=== PATIENT | male | born 1970 | race Caucasian/White ===

== ENCOUNTER 2016-07-03 17:11 | Emergency (ER) | payer BC ==
[~2016-07-03] VITALS: Ht 188 cm; Wt 79.9 kg
[~2016-07-03 17:11] MED LIST: ASPI81TA82 PO; CIPR500T4 PO; FLAG500T PO; HYDR-3533 PO; VENTAER INH
[2016-07-03 17:19] VITALS: BP 114/79; PULSE 85; RESP 16; TEMP 98; O2SAT 97
--- NOTE | 2016-07-03 17:58 | PD ---
HPI Chief Complaint: Injury Time Seen by Provider: 17:58 Travel History International Travel<30 days: No Contact w/Intl Traveler<30days: No Traveled to known affect area: No History of Present Illness HPI 46-year-old male with PMH of polycythemia rubra vera presents to the ED for evaluation of 3 day history of right thigh pain. Onset after falling out of his boat in the garage. Patient states that he struck his thigh on the boat in the process. He denies hitting his head or loss of consciousness. He endorses pain, weakness and swelling in the leg. He denies numbness, tingling, limitations to range of motion of the extremity. The pain is not worsened by ambulation. However he states if he squats down he has problems rising to a standing position. He takes a daily aspirin. No treatment attempted at home. PFSH Past Medical History Hx Anticoagulant Therapy: Yes (ASA) Arthritis: No Asthma: No Autoimmune Disease: No Anxiety: No Depression: No Heart Rhythm Problems: No Cancer: No Cardiovascular Problems: No High Cholesterol: No Chest Pain: No Congestive Heart Failure: No COPD: No Cerebrovascular Accident: No Diabetes: No Diminished Hearing: No Endocrine: No Gastrointestinal Disorders: No GERD: No Genitourinary: No Headaches: No Hiatal Hernia: No Hypertension: No Immune Disorder: No Implanted Vascular Access Dvce: No Kidney Stones: No Medical other: Yes (BLOOD DISORDER) Musculoskeletal: No Neurologic: No Psychiatric: No Reproductive: No Respiratory: Yes Migraines: No Pneumonia: Yes Renal Failure: No Seizures: No Sickle Cell Disease: No Sleep Apnea: No Thyroid Disease: No Ulcer: No Tetanus Vaccination: > 5 Years Influenza Vaccination: No Past Surgical History Abdominal Surgery: No AICD: No Arteriovenous Shunt: No Ear Surgery: No Endocrine Surgery: No Eye Surgery: No Genitourinary Surgery: No Gynecologic Surgery: No Insulin Pump: No Joint Replacement: No Oral Surgery: No Pacemaker: No Other Surgery: Yes Social History Alcohol Use: No Tobacco Use: No Substance Use: No Allergies-Medications (Allergen,Severity, Reaction): Coded Allergies: No Known Allergies (Unverified , 07/03/16) Reported Meds & Prescriptions Reported Meds & Active Scripts Active Flexeril (Cyclobenzaprine HCl) 10 Mg Tab 10 Mg PO TID Ibuprofen 800 Mg Tab 800 Mg PO Q8H Reported Aspirin 81 Mg Tabdr 81 Mg PO DAILY Review of Systems Except as stated in HPI: all other systems reviewed are Neg Physical Exam Narrative GENERAL: Well-nourished, well-developed nontoxic appearing white male in no acute distress SKIN: Warm and dry. HEAD: Normocephalic. EYES: No scleral icterus. No injection or drainage. NECK: Supple, trachea midline. No JVD or lymphadenopathy. CARDIOVASCULAR: Regular rate and rhythm without murmurs, gallops, or rubs. RESPIRATORY: Breath sounds equal bilaterally. No accessory muscle use. GASTROINTESTINAL: Abdomen soft, non-tender, nondistended. MUSCULOSKELETAL: No cyanosis, or edema. FOCUSED RIGHT LOWER EXTREMITY EXAM: 2+ radial pulse. Mild edema and TTP of the distal anterior aspect of the femur and quadriceps. No popliteal masses or tenderness to palpation. Strength 5/5 to dorsiflexion, plantar flexion, knee flexion, hip flexion. Sensation intact to light touch distally. Cap refill less than 2 seconds. BACK: Nontender without obvious deformity. No CVA tenderness. Data Data Last Documented VS Vital Signs Date Time Temp Pulse Resp B/P Pulse Ox O2 Delivery O2 Flow Rate FiO2 07/03/16 17:39 Room Air 07/03/16 17:19 98.0 85 16 114/79 97 Orders Femur (Ap & Lat/2vws) (07/03/16 18:04) Us Leg Venous Doppler (07/03/16 18:08) Ibuprofen (Motrin) (07/03/16 20:15) Cyclobenzaprine (Flexeril) (07/03/16 20:15) MDM Medical Decision Making Medical Screen Exam Complete: Yes Emergency Medical Condition: Yes Differential Diagnosis Musculoskeletal pain versus muscle strain versus contusion versus DVT versus other Narrative Course 46-year-old male with PMH of polycythemia rubra vera presents to the ED for evaluation of 3 day history of right thigh pain. Onset after falling out of his boat in the garage. Patient states that he struck his thigh on the boat in the process. He denies hitting his head or loss of consciousness. He endorses pain, weakness and swelling in the leg. He denies numbness, tingling, limitations to range of motion of the extremity. The pain is not worsened by ambulation. However he states if he squats down he has problems rising to a standing position. Vitals reviewed. Physical exam reveals a non toxic appearing white male in no acute distress. FOCUSED RIGHT LOWER EXTREMITY EXAM: 2+ radial pulse. Mild edema and TTP of the distal anterior aspect of the femur and quadriceps. No popliteal masses or tenderness to palpation. Strength 5/5 to dorsiflexion, plantar flexion, knee flexion, hip flexion. Sensation intact to light touch distally. Cap refill less than 2 seconds. X-ray of the leg reveals no bony injury. Ultrasound reveals a Conde cyst, no DVT. This is musculoskeletal pain and Conde cyst. Patient was prescribed a short course of anti-inflammatories and muscle relaxants. First dose administered in the ED. Instructed to rest, ice, elevate the extremity, take the medications as prescribed, follow up with the primary care provider. He indicated understanding of the instructions and was amenable to plan of care. This patient is stable and discharged home. Diagnosis Primary Impression: Musculoskeletal pain of right lower extremity Additional Impression: Bakers cyst Qualified Code: M71.21 - Bakers cyst, right Referrals: Primary Care Physician Patient Instructions: Bakers Cyst (ED), General Instructions, Musculoskeletal Pain (ED) Departure Forms: Tests/Procedures, Work Release Enter return to work date: Jul 08, 2016 Additional Instructions: Rest, ice, elevate the extremity. Apply ice no longer than 10-15 minutes per hour a few times a day. 800 mg ibuprofen 3 times a day as prescribed. Flexeril 3 times a day as needed for muscle spasm. Do not drive while taking Flexeril. Return to normal, gentle activity as tolerated. No running, jumping activities for the next few weeks. Follow up with orthopedist or your primary care provider. Return to the ED for any urgent or emergent medical condition. Med/Other Pt SpecificInfo: Prescription(s) given Scripts Cyclobenzaprine (Flexeril)10 Mg Tab10 Mg PO TID #12 TAB Ref 0 Prov:Melissa Collins DO 07/03/16 Ibuprofen 800 Mg [id number] Mg PO Q8H #21 TAB Ref 0 Prov:Melissa Collins DO 07/03/16 Disposition: 01 DISCHARGE HOME Condition: Stable Dorothy Dennis Jul 03, 2016 17:58
[2016-07-03] MEDS ORDERED: ASPI1TAB69 PO (17:59)
--- NOTE | 2016-07-03 18:37 | RADHPO ---
EXAM DATE/TIME: 07/03/2016 18:10 [facility] COMPARISON: No previous studies available for comparison. INDICATIONS : Distal right femur pain for 4 days. Patient fell out of boat onto right leg. MEDICAL HISTORY : None. SURGICAL HISTORY : None. ENCOUNTER: Initial ACUITY: 4 - 6 days PAIN SCORE: 10/10 LOCATION: Right distal femur FINDINGS: Two view examination of the right femur demonstrates no evidence of fracture or dislocation. Bony mi neralization is normal. The soft tissue structures are intact. CONCLUSION: Unremarkable examination of the right femur. Danilo Millan MD on July 03, 2016 at 18:35 Board Certified Radiologist. This report was verified electronically.
--- NOTE | 2016-07-03 19:48 | RADHPO ---
EXAM DATE/TIME: 07/03/2016 18:52 [facility] COMPARISON: No previous studies available for comparison. INDICATIONS : Right leg pain. MEDICAL HISTORY : Pneumonia. Dyspnea. Blood disorder. Anticoagulant therapy, Aspirin 81mg. SURGICAL HISTORY : Orthopedic surgery, right arm. ENCOUNTER: Initial ACUITY: 4 - 6 days PAIN SCORE: 10/10 LOCATION: Right leg. TECHNIQUE: Venous ultrasound of the leg was performed from the inguinal ligament to the proximal calf. Real-godwin e, color Doppler and spectral tracing, compression and augmentation techniques were used. FINDINGS: There is normal compressibility of the deep venous system from the inguinal region to the proximal ca lf. No echogenic clot is seen in the lumen of the common femoral, femoral, popliteal, and posterior tibial veins. There is a normal response of the venous system to proximal and distal augmentation an d respiration. The a 2.7 x 0.6 x 2.3 cm Conde's cyst is noted in the popliteal fossa. CONCLUSION: No evidence for DVT. 2.7cm Conde's cyst in popliteal fossa. Danilo Millan MD on July 03, 2016 at 19:41 Board Certified Radiologist. This report was verified electronically.
[2016-07-03] MEDS ORDERED: CYCL1TAB29 PO (19:59)
[2016-07-03] MEDS ORDERED: IBUP800T23 PO (19:59)
[2016-07-03] MEDS ORDERED: IBUPROFEN 800 MG TAB PO ONE (20:15)
[2016-07-03] MEDS ORDERED: CYCLOBENZAPRINE HCL 10 MG TAB PO ONE (20:15)
== END 2016-07-03 20:16 | disposition home or self-care (01) ==
LOC: PHED 17:11 → PHEFT 20:16
DX: M79.1 Myalgia (principal); M71.21 Synovial cyst of popliteal space [Baker], right knee; D45 Polycythemia vera; M79.89 Other specified soft tissue disorders; W17.89XA Other fall from one level to another, initial encounter; Y93.9 Activity, unspecified; Y92.008 Other place in unspecified non-institutional (private) residence as the place of occurrence of the external cause; Z79.01 Long term (current) use of anticoagulants
CPT/HCPCS: 73552; 93971